=== PATIENT | male | born 1975 | race African-American/Black ===

== ENCOUNTER 2017-07-11 11:25 | Emergency (ER) | payer SELFPAY ==
[~2017-07-11] VITALS: Ht 190.5 cm; Wt 80.0 kg
[~2017-07-11 11:25] MED LIST: Z.0.NO CURRENT MEDS
[2017-07-11 11:26] VITALS: BP 136/82; PULSE 97; RESP 16; TEMP 98.4; O2SAT 98
[2017-07-11] MEDS ORDERED: LIDOCAINE HCL 1% 50 ML VIAL INFIL ONE (12:45)
[2017-07-11] MEDS ORDERED: TETANUS/DIPHTHERIA TOXOID ADULT 0.5 ML VIAL IM ONE (12:45)
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
[2017-07-11] MEDS ORDERED: BACT800T5 PO (13:14)
[2017-07-11 13:30] VITALS: BP 120/83; TEMP 97.8
== END 2017-07-11 13:30 | disposition home or self-care (01) ==
LOC: NEPD 11:25
DX: S60.551A Superficial foreign body of right hand, initial encounter (principal); L03.113 Cellulitis of right upper limb; W45.8XXA Other foreign body or object entering through skin, initial encounter; Y93.H2 Activity, gardening and landscaping; Z23 Encounter for immunization
CPT/HCPCS: 10060; 87070; 87185; 90471; 90714